=== PATIENT | female | born 1955 | race Caucasian/White ===

== ENCOUNTER → 2020-07-19 | Outpatient (CLI) | payer MEDICARE, MEDICAID ==
[~2020-07-19] VITALS: Ht 145 cm; Wt 63.0 kg
[~2020-07-19] MED LIST: ASPI-892 PO; CATHETER FLUSH 10 ML SYR IV PRN; CHOL100011 PO; CYCL5TAB PO; DCS100C PO; GEMF600T3 PO; HYDR-3454 PO; LEVO75TA6 PO; MECL-133 PO; NAPR-689 PO; PRAV40TA PO; PRAV80TA2 PO; REGADENOSON 0.4 MG/5 ML SYR (LEXISCAN) IV ONE
[2020-07-19 09:39] VITALS: BP 151/74
--- NOTE | 2020-07-20 10:38 | STRESS TEST ---
DATE OF SERVICE: 07/19/2020 RESTING AND POST REGADENOSON TECHNETIUM-99M TETROFOSMIN SPECT CT IMAGING Baseline images were carried out after injection of 11 mCi of technetium-99m Tetrofosmin. This was followed by 0.4 mg regadenoson and 30 mCi of technetium-99m Tetrofosmin for stress imaging. The electrocardiogram showed sinus rhythm at baseline. It did not change significantly with regadenoson infusion. The patient reported some nausea following regadenoson infusion, which resolved in a few minutes. Review of images at rest and following stress does not indicate any distinct perfusion defects consistent with significant myocardial ischemia or infarction. Gated images show normal global left ventricular systolic function with normal regional wall motion. Left ventricular ejection fraction is calculated to be 70%. Left ventricular end diastolic volume is 49 mL. TID is absent (1.06). CONCLUSIONS: 1. No evidence of any significant myocardial ischemia or infarction. 2. Normal regional wall motion. 3. Normal global left ventricular systolic function with a calculated ejection fraction of 70%. Job ID: [id number] DocumentID: [id number] Dictated Date: 07/20/2020 09:50:48 Power Tool Repairer Date: 07/20/2020 10:38:28 Dictated By: MARY JO HUSTON MD, MA, FACP, FACC,
== END ==
LOC: CARD 08:30
PROVIDERS: ATTEND Internal Medicine Cardiovascular Disease
DX: R06.09 Other forms of dyspnea (principal)
CPT/HCPCS: 78452; 93017; A9502

== ENCOUNTER → 2020-07-20 | Outpatient (CLI) | payer MEDICARE, MEDICAID ==
[~2020-07-20] MED LIST changes: -CATHETER FLUSH 10 ML SYR IV PRN; -REGADENOSON 0.4 MG/5 ML SYR (LEXISCAN) IV ONE
== END ==
LOC: CARD 12:00
PROVIDERS: ATTEND Internal Medicine Cardiovascular Disease
DX: R55 Syncope and collapse (principal); I08.3 Combined rheumatic disorders of mitral, aortic and tricuspid valves
CPT/HCPCS: 93306

== ENCOUNTER → 2020-08-11 | Outpatient (CLI) | payer MEDICARE, MEDICAID | LOC: RAD 07:48 | PROVIDERS: ATTEND Family Medicine | DX: Z12.31 Encounter for screening mammogram for malignant neoplasm of breast (principal) | CPT/HCPCS: 77063; 77067 ==

== ENCOUNTER → 2020-08-11 | Outpatient (CLI) | payer MEDICARE, MEDICAID | LOC: CARD 08:30 | PROVIDERS: ATTEND Internal Medicine Cardiovascular Disease | DX: R55 Syncope and collapse (principal) | CPT/HCPCS: 93225; 93226 ==

== ENCOUNTER → 2020-11-14 | Outpatient (CLI) | payer MEDICARE, MEDICAID | LOC: SLEEP 12:56 | PROVIDERS: ATTEND Nurse Practitioner | DX: G47.33 Obstructive sleep apnea (adult) (pediatric) (principal) ==

== ENCOUNTER → 2021-11-01 | Outpatient (CLI) | payer MEDICARE, MEDICAID | LOC: CARD 13:48 | PROVIDERS: ATTEND Nurse Practitioner Family | DX: I08.3 Combined rheumatic disorders of mitral, aortic and tricuspid valves (principal) | CPT/HCPCS: 93306 ==

== ENCOUNTER → 2021-11-03 | Outpatient (CLI) | payer MEDICARE, MEDICAID ==
[~2021-11-03] MED LIST changes: +CATHETER FLUSH 10 ML SYR IVP PRN; +REGADENOSON 0.4 MG/5 ML SYR (LEXISCAN) IV ONE
[2021-11-03 09:02] VITALS: BP 153/68
--- NOTE | 2021-11-08 10:50 | STRESS TEST ---
DATE OF SERVICE: 11/03/2021 RESTING AND POST REGADENOSON TECHNETIUM-99M TETROFOSMIN SPECT CT IMAGING ORDERING PHYSICIAN: Arleth Crowell APRN. PRIMARY PHYSICIAN: Dr. Palma. CLINICAL DIAGNOSIS: Shortness of breath. Baseline images were carried out after injection of 10.96 mCi of technetium-99m Tetrofosmin. This was followed by 0.4 mg Regadenoson and 30.3 mCi of technetium-99m Tetrofosmin for stress images. The electrocardiogram showed sinus rhythm at baseline. It did not change significantly with the Regadenoson infusion. She noted some shortness of breath, headache and cramping in the stomach following Regadenoson infusion, which resolved in a few minutes. Review of images at rest and following stress does not indicate any distinct perfusion defect consistent with any significant myocardial ischemia or infarction. Gated images show normal global left ventricular systolic function with normal regional wall motion. Left ventricular ejection fraction is calculated to be 74%. CONCLUSIONS: 1. No evidence of significant myocardial ischemia or infarction on this study. 2. Normal regional wall motion. 3. Normal global left ventricular systolic function with a calculated ejection fraction of 74%. Job ID: [id number] DocumentID: [id number] Dictated Date: 11/08/2021 09:10:37 Chemical Supervisor Date: 11/08/2021 10:49:49 Dictated By: MARY JO HUSTON MD, MA, FACP, FACC,
== END ==
LOC: CARD 07:22
PROVIDERS: ATTEND Nurse Practitioner Family
DX: R07.89 Other chest pain (principal)
CPT/HCPCS: 78452; 93017; A9502

== ENCOUNTER 2021-11-30 08:53 | Outpatient (CLI) | payer MEDICARE, MEDICAID ==
[~2021-11-30] VITALS: Ht 142.2 cm; Wt 67.6 kg
[~2021-11-30 08:53] MED LIST changes: -CATHETER FLUSH 10 ML SYR IVP PRN; -REGADENOSON 0.4 MG/5 ML SYR (LEXISCAN) IV ONE
[2021-11-30] MEDS ORDERED: HYDR25TA4 PO (11:04)
[2021-11-30] MEDS ORDERED: FENO54TA PO (11:04)
[2021-11-30] MEDS ORDERED: AMLO-250 PO (11:04)
[2021-11-30] MEDS ORDERED: MULT-593 PO (11:04)
[2021-11-30] MEDS ORDERED: ZOLP5TAB7 PO (11:04)
[2021-11-30] MEDS ORDERED: LEVO88CA4 PO (11:04)
[2021-11-30] MEDS ORDERED: MECL-149 PO (11:04)
[2021-11-30] MEDS ORDERED: CETI5TAB6 PO (11:04)
== END 2021-11-30 12:37 | disposition home or self-care (01) ==
LOC: PREOP 08:53
PROVIDERS: ATTEND Surgery
DX: Z01.818 Encounter for other preprocedural examination (principal)

== ENCOUNTER 2021-12-04 08:57 | Day surgery (SDC) | payer MEDICARE, MEDICAID ==
[~2021-12-04] VITALS: Ht 142.2 cm; Wt 67.6 kg
[~2021-12-04 08:57] MED LIST changes: +AMLO-250 PO; +CETI5TAB6 PO; +FENO54TA PO; +HYDR25TA4 PO; +LEVO88CA4 PO; +MECL-149 PO; +MULT-593 PO; +ZOLP5TAB7 PO
[2021-12-04] MEDS ORDERED: LACTATED RINGERS 1,000 ML IV STA (09:03)
[2021-12-04] MEDS ORDERED: HURRICAINE EXT TUBE (BENZOCAINE) XX PRN (09:15)
--- NOTE | 2021-12-04 09:26 | Progress Note-Pre Operative ---
Pre-Operative Progress Note H&P Reviewed The H&P was reviewed, patient examined and no changes noted. Time Seen by Provider: 09:25 Date H&P Reviewed: December 04, 2021 Time H&P Reviewed: :25 Pre-Operative Diagnosis: Melena, Hemoccult +, Gastritis SABINO LARA DO December 04, 2021 09:26
[2021-12-04 09:27] VITALS: BP 177/83
[2021-12-04] MEDS ORDERED: PROPOFOL INJECTION 50 ML IV ONE (09:46)
[2021-12-04 10:30] VITALS: BP 133/60
[2021-12-04 10:33] VITALS: BP 133/60
--- NOTE | 2021-12-04 10:33 | Progress Note-Post Operative ---
Post-Operative Progess Note Surgeon (s)/Oim Consultant (s) Surgeon SABINO LARA DO Oim Consultant: none Pre-Operative Diagnosis Melena, Hemoccult +, Gastritis Post-Operative Diagnosis Severe Gastritis hiatal hernia polyp internal hemorrhoids Procedure & Operative Findings Date of Procedure 12/04/21 Procedure Performed/Findings EGD with bx Colonoscopy with hot bx PROCEDURE NOTE: After informed consent was obtained, the patient was brought to the endoscopy suite, placed in bed in left lateral decubitus position. She was administered IV sedation by the AUTOMATIC PINSETTER ADJUSTER who then monitored vitals the entire time, heart rate, blood pressure and pulse ox and the scope was inserted down the mouth through the esophagus into the stomach. Pushed into the stomach and past the antrum into the duodenum. Duodenum looked good. Pulled back and did a biopsy of antrum, then retroflexed the scope, saw a very small hiatal hernia and some severe gastritis. I took a picture of both of these and then did a biopsy of the body of the stomach at the site of severe inflammation. Next, pulled the scope into the GE junction and then did a biopsy of the GE junction. Pushed the scope back into the stomach, suctioned all the air out of the stomach. At this point pulled the scope up the esophagus and out the mouth. Switched camera, switched gloves, went down below and started the colonoscopy. Pushed all the way into about 140 cm to get all the way to cecum, took a picture of the appendiceal orifice, noted the ileocecal valve and then slowly withdrew the scope, insufflating to look circumferentially at the acuna looking the cecum, up the ascending colon to the hepatic flexure, then down the transverse colon, splenic flexure, into the descending colon, down into the s igmoid and finally into the rectum. Saw a small polyp in the rectum and removed it with a hot biopsy. Lastly, retroflexed in the rectal vault, saw some minimal internal hemorrhoids and took a picture of this. The patient tolerated the procedure and she recovered in the endoscopy suite. Anesthesia Type IV sedation by anesthesia Estimated Blood Loss Estimated blood loss (mL): scant Specimens/Packing Specimens Removed antral bx body of stomach bx GE jxn bx rectal polyp SABINO LARA DO December 04, 2021 10:33
--- NOTE | 2021-12-04 10:34 | Endoscopy Discharge Instruct ---
Endo Procedure/Findings Findings 1.: Gastritis 2.: Hiatal Hernia 3.: Polyp 4.: Internal Hemorrhoids Discharge Instructions - Activity: You might feel a little sleepy until tomorrow. This is due to the medicine you received to relax you. Until tomorrow, you should: NOT drive a car, operate machinery or power tools. NOT drink any alcoholic beverages. NOT make any important decisions or sign importortant papers. Do not return to work until tomorrow, unless otherwise instructed. Resume previous activities tomorrow. Diet: Start by taking liquids. If you tolerate liquids, advance to solid food. 1.: EGD in 1 year 2.: Colonscopy in 5 years Notify Physician - If you experience excessive bleeding, unusual abdominal pain, fever, or chest pain, contact your doctor immediately. SABINO LARA DO December 04, 2021 10:34
[2021-12-04 10:55] VITALS: BP 138/46
--- NOTE | 2021-12-04 11:38 | Anesthesia-General Post-Op ---
MAC Patient Condition Mental Status/LOC: Same as Preop Cardiovascular: Satisfactory Nausea/Vomiting: Absent Respiratory: Satisfactory Pain: Controlled Complications: Absent Post Op Complications Complications None Follow Up Care/Instructions Patient Instructions None needed. Anesthesiology Discharge Order Discharge Order Patient was doing well this morning after the procedure with no complaints, stable vital signs, no apparent adverse anesthesia problems. ERNESTO RODNEY DO December 04, 2021 11:38
== END 2021-12-04 11:15 | disposition home or self-care (01) ==
LOC: ENDO 08:57
PROVIDERS: ATTEND Surgery
DX: K29.51 Unspecified chronic gastritis with bleeding (principal); B96.81 Helicobacter pylori [H. pylori] as the cause of diseases classified elsewhere; K44.9 Diaphragmatic hernia without obstruction or gangrene; K20.91 Esophagitis, unspecified with bleeding; K62.1 Rectal polyp; K64.8 Other hemorrhoids; Z87.891 Personal history of nicotine dependence; Z79.82 Long term (current) use of aspirin
CPT/HCPCS: 88305; 88342

== ENCOUNTER → 2022-01-10 | Outpatient (CLI) | payer MEDICARE, MEDICAID | LOC: LAB 12:55 | PROVIDERS: ATTEND Surgery | DX: B96.81 Helicobacter pylori [H. pylori] as the cause of diseases classified elsewhere (principal) | CPT/HCPCS: 36415; 87338 ==

== ENCOUNTER → 2022-04-17 | Outpatient (CLI) | payer MEDICARE, MEDICAID ==
--- NOTE | 2022-04-17 17:41 | Diagnostic Imaging Report ---
INDICATION: Routine screening. Comparison is made with prior mammograms of 08/11/2020 and 10/10/2017. 2-D and 3-D bilateral screening mammography was performed with CAD. Both breasts are heterogeneously dense, limiting the sensitivity of mammography. No mass or malignant-appearing microcalcifications are seen. Axillae are unremarkable. IMPRESSION: No mammographic features suspicious for malignancy are identified. ACR BI-RADS Category 1: Negative. Result letter will be mailed to the patient. Note: At least 10% of breast cancer is not imaged by mammography. BI-RADS Category 1 Dictated by: Dictated on workstation # [id number]
== END ==
LOC: RAD 13:00
PROVIDERS: ATTEND Nurse Practitioner Family
DX: Z12.31 Encounter for screening mammogram for malignant neoplasm of breast (principal)
CPT/HCPCS: 77063; 77067

== ENCOUNTER 2022-05-08 08:34 | Day surgery (SDC) | payer MEDICARE, MEDICAID ==
[2022-05-08] VITALS (11 sets, daily range): BP systolic 122–170; BP diastolic 51–70
[~2022-05-08] VITALS: Ht 142.2 cm; Wt 66.4 kg
[2022-05-08] MEDS ORDERED: HEParin (CATH LAB) 2,000 ML IV ONE (09:04)
[2022-05-08] MEDS ORDERED: NS IV 1000 ML 1,000 ML ONE (09:04)
[2022-05-08] MEDS ORDERED: LIDOCAINE 1% INJ 30 ML (XYLOCAINE) VIAL ONE (09:04)
[2022-05-08] MEDS ORDERED: NS IV 1000 ML 1,000 ML IV SCH ×2 (09:15→13:15)
[2022-05-08] MEDS ORDERED: CLOP75TA69 PO (09:26)
[2022-05-08] MEDS ORDERED: ATOR40TA70 PO (09:26)
[2022-05-08] MEDS ORDERED: ASPI-1238 PO (09:26)
[2022-05-08] MEDS ORDERED: AMLO-251 PO (09:26)
[2022-05-08] MEDS ORDERED: MTP25TSR PO (09:26)
[2022-05-08 09:29] LABS: HEMATOCRIT 43 % (35-52); HEMOGLOBIN 14.1 g/dL (11.5-16.0); MEAN CORPUSCULAR HEMOGLOBIN 31 pg (25-34); MEAN CORPUSCULAR HGB CONC 33 g/dL (32-36); MEAN CORPUSCULAR VOLUME 93 fL (80-99); MEAN PLATELET VOLUME 10.1 fL (9.0-12.2); PLATELET COUNT 283 10^3/uL (130-400); WHITE BLOOD COUNT 5.5 10^3/uL (4.3-11.0)
[2022-05-08 09:51] LABS: INR 0.9 (0.8-1.4); PROTHROMBIN TIME PATIENT 12.6 SEC (12.2-14.7)
[2022-05-08 10:01] LABS: ALANINE AMINOTRANSFERASE 16 U/L (0-55); ALBUMIN 4.7 GM/DL (3.2-4.5); ALKALINE PHOSPHATASE 74 U/L (40-136); BILIRUBIN,TOTAL 0.7 MG/DL (0.1-1.0); BUN/CREATININE RATIO 13; CALCIUM 10.3 MG/DL (8.5-10.1); CARBON DIOXIDE 24 MMOL/L (21-32); CHLORIDE 102 MMOL/L (98-107); CHOLESTEROL 139 MG/DL (< 200); CREATININE SERUM 0.88 MG/DL (0.60-1.30); GFR ESTIMATED 72; GLUCOSE 122 MG/DL (70-105); HDL CHOLESTEROL 58 MG/DL (40-60); POTASSIUM 3.8 MMOL/L (3.6-5.0); SODIUM 138 MMOL/L (135-145); TOTAL PROTEIN 7.8 GM/DL (6.4-8.2); TRIGLYCERIDES 165 MG/DL (<150); VLDL CHOLESTEROL 33 MG/DL (5-40)
[2022-05-08] MEDS ORDERED: MIDAZOLAM 5 MG/5 ML (VERSED) VIAL ONE ×2 (11:44→12:23)
[2022-05-08] MEDS ORDERED: fentaNYL INJ 100 MCG/2 ML AMP ONE ×2 (11:44→12:23)
[2022-05-08] MEDS ORDERED: PATIENT MAY USE OWN MEDS, ALL PO SCH (13:15)
--- NOTE | 2022-05-08 13:28 | Discharge Inst-Cardiology ---
Discharge Inst-Cardiac Discharge Medications Continued Medications: Amlodipine Besylate (Amlodipine Besylate) 10 Mg Tablet 10 MG PO DAILY, TAB Aspirin (Aspirin EC) 81 Mg Tablet.dr 81 MG PO DAILY, TAB Atorvastatin Calcium (Atorvastatin Calcium) 40 Mg Tablet 40 MG PO HS, TAB Cetirizine HCl (Cetirizine HCl) 5 Mg Tablet 5 MG PO DAILY, TAB Fenofibrate (Fenofibrate) 54 Mg Tablet 54 MG PO DAILY, TAB Hydrochlorothiazide (Hydrochlorothiazide) 25 Mg Tablet 25 MG PO DAILY, TAB Levothyroxine Sodium (Levothyroxine) 88 Mcg Capsule 88 MCG PO DAILY, CAP Meclizine HCl (Meclizine HCl) 25 Mg Tablet 25 MG PO DAILY, TAB Metoprolol Succinate (Metoprolol Succinate) 25 Mg Tab.er.24h 25 MG PO DAILY, TAB Multivitamin with Minerals (Multiple Vitamin) 1 Each Tablet 1 EACH PO DAILY, TAB Zolpidem Tartrate (Zolpidem Tartrate) 5 Mg Tablet 5 MG PO DAILY PRN for SLEEP, TAB Discontinued Medications: Clopidogrel Bisulfate (Plavix) 75 Mg Tablet 75 MG PO DAILY, TAB MARY JO HUSTON MD FACP [facility] May 08, 2022 13:28
--- NOTE | 2022-05-08 13:30 | Discharge Inst-Post CATH ---
Discharge Inst-CATH/EP Post Cardiac Cath/EP D/C Inst Follow Up/Plan F/u with Dr Manuel in 2-3 weeks ACTIVITY * Go Home directly and rest. * Limit activity of the leg (or wrist if it was used) for 7 days including aerobics, swimming, jogging, bicycling, etc. * Restrict stair-climbing for 7 days if possible, if not, climb up with your n on-cath leg, then bring together on the same step. * Avoid lifting, pushing, pulling or excessive movement of the affected ex tremity for 7 days. * Customary sexual activity may be resumed after 2 days-use caution not to use a position that strains or causes pain to the affected extremity. * No driving for 24 hours. * NO SMOKING. * Avoid straining for bowel movements for 7 days. * Gentle walking on level ground is allowed. * Returning to work will depend on the type of procedure and the results. Your doctor will discuss this with you. CALL YOUR DOCTOR FOR ANY OF THE FOLLOWING: *If bleeding from the puncture site occurs- Apply gentle pressure to site with clean cloth and call your doctor or EMS. * If a knot or lump forms under the skin, increases in size, or causes pain. * If bruising appears to be worsening or moving further down your leg instead of disappearing. * Temperature above 101 F. CARE OF YOUR GROIN INCISION; * Bruising or purple discoloration of the skin near the puncture site is common. * You may shower only, no bathtub bathing for 5 days. Be careful to avoid slipping as your leg may feel stiff. * If a closure device was used on your femoral artery, please see the attached guide regarding care of the device and your leg. * Leave dressing on FOR 24 hours. CARE OF YOUR WRIST INCISION; * Bruising or purple discoloration of the skin near the puncture site is common. * You may shower. * DO NOT submerge wrist. * Leave dressing on FOR 24 hours. MARY JO MANUEL MD [facility] May 08, 2022 13:29
--- NOTE | 2022-05-08 13:47 | CARDIAC CATHETERIZATION ---
DATE OF SERVICE: 05/08/2022 CARDIAC CATHETERIZATION REPORT INDICATION FOR PROCEDURE: The patient is a 67-year-old lady, who has been experiencing symptoms that are suggestive of new onset of angina. Cardiac catheterization was carried out today after having obtained an informed consent. DESCRIPTION OF PROCEDURE: She was brought to the cardiac catheterization laboratory in a fasting state. Right groin was prepared and draped in the usual sterile fashion. Lidocaine 1% was used for local anesthesia. Modified Seldinger technique was used to advance a 5-[place] sheath in the right femoral artery, 5-[place] JL4 catheter for left coronary angiography, 5-[place] JR4 catheter for right coronary angiography, 5-[place] pigtail catheter was used for left heart catheterization and left ventricular angiography. Angiography of the right femoral artery was carried out through the sheath. Mynx was used to achieve hemostasis. She tolerated the procedure well. HEMODYNAMICS: Left ventricular end-diastolic pressure following coronary angiography was 18 mmHg. There was no significant pressure gradient on pullback across the aortic valve. LEFT VENTRICULAR ANGIOGRAPHY: Left ventricular angiography was carried out in the right anterior oblique projection. Global left ventricular systolic function was normal. No regional wall motion abnormalities seen. Left ventricular ejection fraction approximately 65%. CORONARY ANGIOGRAPHY: Left main coronary artery is free of significant disease. Left anterior descending artery is free of significant disease. Left circumflex artery appears to be dominant and does not exhibit significant disease. Right coronary artery is small in caliber and nondominant. It did not exhibit any significant disease. CONCLUSIONS: 1. No angiographically significant disease. 2. Normal global left ventricular systolic function with ejection fraction approximately 60%. 3. Left ventricular end-diastolic pressure 18 mmHg. DISCUSSION AND RECOMMENDATIONS: Based on results of the study, it appears appropriate to continue a conservative regimen. She has been on aspirin and Plavix. Plavix is being discontinued. Aspirin has been continued for now because of a history of carotid arterial disease. This issue will be addressed on an outpatient basis. The rest of the current regimen is being continued. Minimal calcium elevation is seen (10.3). For this, we have advised followup with her primary care physician. Questions were answered. Outpatient followup is advised. Job ID: [id number] DocumentID: [id number] Dictated Date: 05/08/2022 13:34:21 Actionscript Developer Date: 05/08/2022 13:46:03 Dictated By: MARY JO HUSTON MD, MA, FACP, FACC,
== END 2022-05-08 17:00 | disposition home or self-care (01) ==
LOC: CATH 08:34
PROVIDERS: ATTEND Internal Medicine Cardiovascular Disease
DX: R07.9 Chest pain, unspecified (principal); I20.9 Angina pectoris, unspecified; G47.33 Obstructive sleep apnea (adult) (pediatric); I77.9 Disorder of arteries and arterioles, unspecified; E03.9 Hypothyroidism, unspecified; E78.2 Mixed hyperlipidemia; I08.1 Rheumatic disorders of both mitral and tricuspid valves; I27.21 Secondary pulmonary arterial hypertension; I10 Essential (primary) hypertension; Z87.891 Personal history of nicotine dependence; Z79.899 Other long term (current) drug therapy
CPT/HCPCS: 80053; 80061; 85027; 85610; 85730; 87081; 93005; 93458; 93567; C1760; C1894; 36415

== ENCOUNTER → 2022-06-30 | Outpatient (CLI) | payer MEDICARE, MEDICAID ==
[~2022-06-30] MED LIST changes: +AMLO-251 PO; +ASPI-1238 PO; +ATOR40TA70 PO; +CLOP-31 PO; +MTP25TSR PO
--- NOTE | 2022-06-30 11:53 | Diagnostic Imaging Report ---
INDICATION: Knee pain, edema, fell 3 weeks ago EXAMINATION: Left knee 06/30/2022 FINDINGS: 3 views of the knee. There is mild irregularity and questioned depression along the lateral tibial plateau with a small osseous fragment adjacent to the lateral tibial eminence on the frontal view age indeterminate. If patient has difficult bearing weight fracture of the lateral tibial plateau suspected. Remaining osseous structures intact. No dislocations. There is a moderate joint effusion. IMPRESSION: 1. Irregularity and mild depression along the lateral tibial plateau age indeterminate. If there is continued pain or patient cannot bear weight CT imaging may provide further characterization for possible acute plateau fracture. Dictated by: Dictated on workstation # [id number]
== END ==
LOC: RAD 09:39
PROVIDERS: ATTEND Nurse Practitioner Family
DX: M25.562 Pain in left knee (principal); M25.462 Effusion, left knee; W19.XXXA Unspecified fall, initial encounter
CPT/HCPCS: 36415; 73562; 83036

== ENCOUNTER → 2023-05-07 | Outpatient (CLI) | payer MEDICARE ==
[~2023-05-07] MED LIST changes: -MECL-149 PO; +MECL-291 PO
--- NOTE | 2023-05-07 15:24 | Diagnostic Imaging Report ---
INDICATION: Postmenopausal state COMPARISON: None available FINDINGS: AP Spine L1-L4: [BMD (g/cm2): 0.980] [T-Score: -1.8] [Z-Score: 0.0] [BMD Previous: na] [BMD % Change: na] LT Hip Neck: [BMD (g/cm2): 0.764] [T-Score: -2.0] [Z-Score: -0.2] LT Hip Total: [BMD (g/cm2):0.931] [T-Score:-0.6] [Z-Score: 0.9] [BMD Previous: na] [BMD % Change: na] RT Hip Neck: [BMD (g/cm2):0.726] [T-Score:-2.2] [Z-Score:-0.5] RT Hip Total: [BMD (g/cm2):0.914] [T-score:-0.7] [Z-Score:0.8] [BMD Previous:na] [BMD % Change:na] *Indicates significant change from prior examination based on 95% confidence level. World Health Organization criteria for BMD interpretation classify patients as Normal (T-score at or above -1.0), Osteopenic (T-score between -1.0 and -2.5) or Osteoporotic (T-score at or below -2.5). LIMITATIONS AND MODIFICATION: None. FRACTURE RISK (FRAX SCORE): The ten year probability of (%): Major Osteoporotic Fracture: [20.5] Hip Fracture: [5.2] IMPRESSION: 1. Osteopenia (Low bone mass). 2. Baseline examination. 3. See below National Osteoporosis Foundation guidelines on when to potentially initiate pharmacologic therapy. Based on the National Osteoporosis Foundation Guidelines, pharmacologic treatment should be initiated in any of the following, unless clinical conditions suggest otherwise: * Any patient with prior fragility fracture of the hip or vertebrae. A spine fracture indicates 5X risk for subsequent spine fracture and 2X risk for subsequent hip fracture. * Osteoporosis (T-score <-2.5). * Postmenopausal women and men age 50 and older with low bone mass/osteopenia (T-score between -1.0 and -2.5) by DXA and 10-year major osteoporotic fracture greater than 20% or a 10-year probability of hip fracture greater than 3%. These fracture risks are supplied above in the FRAX score, if applicable. * Clinician judgement and/or patient preferences may indicate treatment for people with 10-year fracture probabilities above or below these levels. Dictated by: Dictated on workstation # [id number]
--- NOTE | 2023-05-07 15:32 | Diagnostic Imaging Report ---
Indication: Bilateral digital 2-D and 3-D mammogram screening with CAD. Compared: 03/2022, 07/2020 and 09/2017. Findings: Density 3. No breast mass, spiculated lesion, architectural distortion. Suspicious calcifications or changes to suggest malignancy. Impression: ACR BI-RADS Category 1: Negative. Result letter will be mailed to the patient. Note: At least 10% of breast cancer is not imaged by mammography. BI-RADS Category 1 Dictated by: Dictated on workstation # [id number]
== END ==
LOC: RAD 10:15
PROVIDERS: ATTEND Nurse Practitioner Family
DX: Z12.31 Encounter for screening mammogram for malignant neoplasm of breast (principal); M85.89 Other specified disorders of bone density and structure, multiple sites
CPT/HCPCS: 77063; 77067; 77080